=== PATIENT | male | born 1980 | race Two or more races ===

== ENCOUNTER 2018-11-15 21:06 | Emergency (ER) | payer OTHER ==
[2018-11-15 21:53] VITALS: RESP 18; TEMP 98.1; O2SAT 98
[2018-11-15 22:08] VITALS: BP 126/72; PULSE 88
--- NOTE | 2018-11-15 22:12 | ED PDOC ---
Arrival/HPI - General Chief Complaint: Chest Pain Time Seen by Provider: 11/15/18 21:16 Historian: Patient - History of Present Illness Narrative History of Present Illness (Text): 11/15/18 22:04 38 year old male, with no significant past medical history, presents to the emergency department with possible syncopal episode. He states he was at the supermarket when he began feeling short of breath and had a syncopal episode. He admitted to smoking marijuana prior to his syncopal episode. He reports having similar symptoms last week, recalling a similar occurrence after smoking marijuana. Patient states he has no medical history and takes no medication. Patient denies any fevers, chills, headache, dizziness, chest pain, shortness of breath, cough, abdominal pain, nausea, vomiting, diarrhea, back pain, neck pain, or any other complaint. Time/Duration: Prior to Arrival Symptom Onset: Gradual Symptom Course: Unchanged Activities at Onset: Rest Context: Walking Past Medical History - Provider Review Nursing Documentation Reviewed: Yes - Travel History Have you recently traveled outside [place] w/in the past 3 mons?: No - Infectious Disease Hx of Infectious Diseases: None - Cardiac Hx Cardiac Disorders: No - Pulmonary Hx Respiratory Disorders: Yes Hx Asthma: Yes - Neurological Hx Neurological Disorder: No - HEENT Hx HEENT Disorder: No - Renal Hx Renal Disorder: No - Endocrine/Metabolic Hx Endocrine Disorders: No - Hematological/Oncological Hx Blood Disorders: No - Integumentary Hx Dermatological Disorder: No - Musculoskeletal/Rheumatological Hx Musculoskeletal Disorders: No - Gastrointestinal Hx Gastrointestinal Disorders: No - Genitourinary/Gynecological Hx Genitourinary Disorders: No - Psychiatric Hx Psychophysiologic Disorder: No Hx Substance Use: Yes Family/Social History - Physician Review Nursing Documentation Reviewed: Yes Family/Social History: No Known Family HX Smoking Status: Never Smoked Hx Alcohol Use: No Hx Substance Use: Yes Substance used: marijuana Allergies/Home Meds Allergies/Adverse Reactions: Allergies No Known Allergies Allergy (Verified 11/15/18 21:16) Home Medications: Home Meds Medication Instructions Recorded Confirmed RX: No Known Home Med 11/15/18 11/15/18 Review of Systems - Physician Review All systems were reviewed & negative as marked: Yes - Review of Systems Constitutional: absent: Fevers, Night Sweats Respiratory: absent: SOB, Cough Cardiovascular: absent: Chest Pain Gastrointestinal: absent: Abdominal Pain, Diarrhea, Nausea, Vomiting Musculoskeletal: absent: Back Pain, Neck Pain Neurological: absent: Headache, Dizziness Physical Exam Vital Signs Reviewed: Yes Vital Signs Temp Pulse Resp BP Pulse Ox 11/15/18 21:30 98.1 F 89 18 128/71 98 Temperature: Afebrile Blood Pressure: Normal Pulse: Regular Respiratory Rate: Normal Appearance: Positive for: Well-Appearing, Non-Toxic, Comfortable Pain Distress: None Mental Status: Positive for: Alert and Oriented X 3 - Systems Exam Head: Present: Atraumatic, Normocephalic Pupils: Present: PERRL Extroacular Muscles: Present: EOMI Conjunctiva: Present: Injected Mouth: Present: Moist Mucous Membranes Respiratory/Chest: Present: Clear to Auscultation, Good Air Exchange. No: Respiratory Distress, Accessory Muscle Use Cardiovascular: Present: Regular Rate and Rhythm, Normal S1, S2. No: Murmurs Abdomen: No: Tenderness, Distention, Peritoneal Signs Neurological: Present: GCS=15, Speech Normal Skin: Present: Warm, Dry, Normal Color Psychiatric: Present: Alert, Oriented x 3, Normal Insight, Normal Concentration Medical Decision Making ED Course and Treatment: 11/15/18 22:22 Impression: 38 year old male presents with possible syncope Plan: -- EKG -- Reassess and disposition Prior Visits: Notes and results from previous visits were reviewed Progress Notes: 11/15/18 22:30 Patient educated on benign nature of chest pain and advised to adopt cannabis cessation and to monitor his symptoms. He states he will attempt to cut down on smoking and will follow up with his PCP. He is stable for discharge. - EKG Interpretation EKG Interpretation (Text): 11/16/18 00:19 Normal Sinus rhythm @ 88bpm Early repolarization Normal QT intervals No ST elevations Interpreted by ED Physician: Yes Type: 12 lead EKG Comparison: No previous EKG avail. - Scribe Statement The provider has reviewed the documentation as recorded by the Eugene Neumann Provider Scribe Attestation: All medical record entries made by the Scribe were at my direction and personally dictated by me. I have reviewed the chart and agree that the record accurately reflects my personal performance of the history, physical exam, medical decision making, and the department course for this patient. I have also personally directed, reviewed, and agree with the discharge instructions and disposition. Disposition/Present on Arrival - Present on Arrival Any Indicators Present on Arrival: No History of DVT/PE: No History of Uncontrolled Diabetes: No Urinary Catheter: No History of Decub. Ulcer: No History Surgical Site Infection Following: None - Disposition Have Diagnosis and Disposition been Completed?: Yes Diagnosis: Atypical chest pain Disposition: HOME/ ROUTINE Disposition Time: 22:15 Condition: IMPROVED Discharge Instructions (ExitCare): Chest Pain That Is Not Caused by the Heart (DC), Chest Pain (ED) Print Language: ALB[place] Additional Instructions: All medical record entries made by the Scribe were at my direction and personally dictated by me. I have reviewed the chart and agree that the record accurately reflects my personal performance of the history, physical exam, medical decision making, and the department course for this patient. I have also personally directed, reviewed, and agree with the discharge instructions and disposition. Please consider only smoking weed at home or in safe place If needed, please schedule an appointment with the dance choreographer Referrals: James Payne MD [Staff Provider] - Follow up with primary Forms: [employer] (Irish)
--- NOTE | 2018-11-16 10:18 | CARD ---
APPROVED REPORT Date of service: 11/15/2018 EKG Measurement Heart [id number] <Conclusion> Normal sinus rhythm Diffuse J point elevation, possible pericarditis vs. normal variant Borderlinel ECG
== END 2018-11-15 22:02 | disposition home or self-care (01) ==
LOC: ED 21:06
DX: R07.89 Other chest pain (principal)